=== PATIENT | male | born 1965 | race Caucasian/White ===

== ENCOUNTER 2021-04-15 21:07 | Emergency (ER) | payer OTHER ==
[~2021-04-15] VITALS: Ht 190.5 cm; Wt 106.6 kg
[2021-04-15 21:07] VITALS: BP 178/100
[2021-04-15] MEDS: NIFEdipine 30 MG TABER PO ONE (21:30)
== END 2021-04-15 21:35 ==
LOC: MED 21:07
DX: I10 Essential (primary) hypertension (principal); Z02.89 Encounter for other administrative examinations
CPT/HCPCS: 99283